=== PATIENT | female | born 1940 | race Caucasian/White ===

== ENCOUNTER 2018-01-05 12:43 | Inpatient (IN) | payer MEDICARE, BC ==
[~2018-01-05] VITALS: Ht 167.6 cm; Wt 47.9 kg
[2018-01-05 14:04] LABS: BASOPHILS # (AUTO) 0.06 x10^3/uL (0-0.1); BASOPHILS % (AUTO) 1 % (0-1); EOSINOPHILS # (AUTO) 0.06 x10^3/uL (0-0.4); EOSINOPHILS % (AUTO) 1 % (1-7); LYMPHOCYTES # (AUTO) 0.96 x10^3/uL (1-3.4); LYMPHOCYTES % (AUTO) 17 % (22-44); MD NO; MEAN CORPUSCULAR HEMOGLOBIN 29.5 pg (27.0-34.8); MEAN CORPUSCULAR VOLUME 92.3 fL (80-100); MEAN PLATELET VOLUME 7.4 fL (7.4-10.4); MONOCYTES # (AUTO) 0.39 x10^3/uL (0.2-0.8); MONOCYTES % (AUTO) 7 % (2-9); NEUTROPHILS # (AUTO) 4.16 x10^3/uL (1.8-6.8); NEUTROPHILS % (AUTO) 74 % (42-75); PLATELET COUNT 334 x10^3/uL (130-400); RED BLOOD COUNT 3.97 x10^6/uL (3.82-5.3); RED CELL DISTRIBUTION WIDTH 17.3 % (9.6-15.2)
[2018-01-05 14:11] LABS: INTERNATIONAL NORMALIZED RATIO 1.08 (0.93-1.1); PROTHROMBIN TIME 11.2 Seconds (9.6-11.5)
[2018-01-05 14:14] LABS: CHLORIDE 111 mmol/L (98-107)
[2018-01-05 14:15] LABS: ALBUMIN 3.3 g/dL (3.4-5.0); ANION GAP 5 mmol/L (5-15); CALCIUM 8.8 mg/dL (8.5-10.1)
[2018-01-05 14:19] LABS: ALANINE AMINOTRANSFERASE 20 U/L (12-78); ALKALINE PHOSPHATASE 101 U/L (45-117); BILIRUBIN,TOTAL 0.3 mg/dL (0.2-1.0); CREATININE 0.61 mg/dL (0.55-1.02); TOTAL PROTEIN 7.4 g/dL (6.4-8.2)
[2018-01-05] MEDS ORDERED: ASPIRIN 81 MG TABLET CHEW PO ONE (15:00)
[2018-01-05] MEDS ORDERED: CLOP75TA PO (15:55)
[2018-01-05] MEDS ORDERED: CITA10TA4 PO (15:55)
[2018-01-05] MEDS ORDERED: LOPE2TAB28 PO (15:55)
[2018-01-05] MEDS ORDERED: MIRT15TA4 PO (15:55)
[2018-01-05] MEDS ORDERED: METR500T8 PO (15:55)
[2018-01-05] MEDS ORDERED: POTA20TA89 PO (15:55)
[2018-01-05] MEDS ORDERED: FOLI-17 PO (15:55)
[2018-01-05] MEDS ORDERED: BUDE3CAP6 PO (15:55)
[2018-01-05] MEDS ORDERED: POTASSIUM CHLORIDE 20 MEQ TAB.ER.PRT PO ONE (16:00)
[2018-01-05] MEDS ORDERED: ASPIRIN 81 MG TABLET CHEW ONE (16:14)
[2018-01-05 16:18] LABS: THYROID STIMULATING HORMONE 2.07 mIU/L (0.358-3.740)
[2018-01-05 16:38] LABS: HEMOGLOBIN A1C 4.6 % (4.2-6.3)
[2018-01-05] MEDS ORDERED: GADOBUTROL 7.5 MMOL/7.5 ML PFS ONE (16:42)
[2018-01-05 18:45] VITALS: BP 166/74
[2018-01-05 18:58] VITALS: BP 168/66
[2018-01-05 20:08] VITALS: BP 166/74
[2018-01-05] MEDS ORDERED: POTASSIUM CHLORIDE 20 MEQ TAB.ER.PRT ONE (21:16)
[2018-01-05] MEDS: SODIUM CHLORIDE 0.9% 1,000 ML IV SCH (21:23)
[2018-01-05] MEDS: ATORVASTATIN 40 MG TABLET PO SCH (21:24)
[2018-01-06 00:20] LABS: MICROSCOPIC AUTO
[2018-01-06 00:22] LABS: CULTURE INDICATED? YES
[2018-01-06 00:35] VITALS: BP 168/67
[2018-01-06] MEDS: ACETAMINOPHEN 325 MG TABLET PO PRN ×2 (00:45→22:53)
[2018-01-06 05:21] LABS: BASOPHILS # (AUTO) 0.04 x10^3/uL (0-0.1); BASOPHILS % (AUTO) 1 % (0-1); EOSINOPHILS # (AUTO) 0.07 x10^3/uL (0-0.4); EOSINOPHILS % (AUTO) 1 % (1-7); LYMPHOCYTES # (AUTO) 0.99 x10^3/uL (1-3.4); LYMPHOCYTES % (AUTO) 16 % (22-44); MD NO; MEAN CORPUSCULAR HEMOGLOBIN 29.4 pg (27.0-34.8); MEAN CORPUSCULAR HGB CONC 32.2 g/dL (32.4-35.8); MEAN CORPUSCULAR VOLUME 91.3 fL (80-100); MEAN PLATELET VOLUME 7.1 fL (7.4-10.4); MONOCYTES # (AUTO) 0.66 x10^3/uL (0.2-0.8); MONOCYTES % (AUTO) 11 % (2-9); NEUTROPHILS # (AUTO) 4.52 x10^3/uL (1.8-6.8); NEUTROPHILS % (AUTO) 72 % (42-75); PLATELET COUNT 243 x10^3/uL (130-400); RED BLOOD COUNT 3.28 x10^6/uL (3.82-5.3); RED CELL DISTRIBUTION WIDTH 17.6 % (9.6-15.2)
[2018-01-06 05:31] LABS: CHLORIDE 115 mmol/L (98-107)
[2018-01-06 05:41] LABS: ANION GAP 4 mmol/L (5-15); CHOL/HDL RATIO 1.8; CHOLESTEROL, TOTAL 112 mg/dL (140-239); CREATININE 0.61 mg/dL (0.55-1.02); HDL CHOL % 55 % (28-40); HDL CHOLESTEROL (DIRECT) 62 mg/dL (40-60); LDL CHOLESTEROL,CALCULATED 40 mg/dL (54-169); LDL/HDL RATIO 0.6 (0.5-3.0); TRIGLYCERIDES 49 mg/dL (50-200); VLDL CHOLESTEROL 10 mg/dL (0-25)
[2018-01-06] MEDS: SODIUM CHLORIDE 0.9% 1,000 ML IV SCH ×2 (08:48→15:32)
[2018-01-06] MEDS: ASPIRIN 325 MG TABLET PO SCH (09:48)
[2018-01-06] MEDS ORDERED: GADOBUTROL 7.5 MMOL/7.5 ML PFS ONE (11:17)
[2018-01-06 12:27] VITALS: BP 132/68
[2018-01-06 14:30] VITALS: BP 149/69
[2018-01-06] MEDS: ATORVASTATIN 40 MG TABLET PO SCH (20:31)
[2018-01-06 21:23] VITALS: BP 136/63
[2018-01-07 02:00] VITALS: BP 162/75
[2018-01-07 05:30] LABS: BASOPHILS # (AUTO) 0.06 x10^3/uL (0-0.1); BASOPHILS % (AUTO) 1 % (0-1); EOSINOPHILS # (AUTO) 0.09 x10^3/uL (0-0.4); EOSINOPHILS % (AUTO) 2 % (1-7); LYMPHOCYTES # (AUTO) 1.06 x10^3/uL (1-3.4); LYMPHOCYTES % (AUTO) 24 % (22-44); MD NO; MEAN CORPUSCULAR HEMOGLOBIN 29.7 pg (27.0-34.8); MEAN CORPUSCULAR HGB CONC 32.2 g/dL (32.4-35.8); MEAN CORPUSCULAR VOLUME 92.3 fL (80-100); MEAN PLATELET VOLUME 7.6 fL (7.4-10.4); MONOCYTES # (AUTO) 0.51 x10^3/uL (0.2-0.8); MONOCYTES % (AUTO) 11 % (2-9); NEUTROPHILS # (AUTO) 2.77 x10^3/uL (1.8-6.8); NEUTROPHILS % (AUTO) 62 % (42-75); PLATELET COUNT 239 x10^3/uL (130-400); RED BLOOD COUNT 3.31 x10^6/uL (3.82-5.3); RED CELL DISTRIBUTION WIDTH 17.3 % (9.6-15.2)
[2018-01-07 05:31] LABS: CHLORIDE 117 mmol/L (98-107)
[2018-01-07 06:04] LABS: ALBUMIN 2.4 g/dL (3.4-5.0); ANION GAP 5 mmol/L (5-15); CALCIUM 8.2 mg/dL (8.5-10.1); CREATININE 0.45 mg/dL (0.55-1.02); TOTAL IRON BINDING CAPACITY 334 mcg/dL (250-450)
[2018-01-07 06:10] LABS: % IRON SATURATION 7 % (20-55); FOLATE LEVEL > 20.0 ng/mL (3.1-17.5); IRON LEVEL 24 mcg/dL (50-170)
[2018-01-07 07:40] VITALS: BP 188/79
[2018-01-07] MEDS: ASPIRIN 325 MG TABLET PO SCH (08:29)
[2018-01-07] MEDS: SODIUM CHLORIDE 0.9% 1,000 ML IV SCH ×2 (12:14→23:00)
[2018-01-07] MEDS: ACETAMINOPHEN 325 MG TABLET PO PRN (13:14)
[2018-01-07 13:53] VITALS: BP 146/88
[2018-01-07 19:14] VITALS: BP 135/67
[2018-01-07 21:00] LABS: CULTURE INDICATED? YES; MICROSCOPIC INDICATED
[2018-01-07] MEDS: FERROUS SULFATE 325 MG TABLET PO SCH (21:05)
[2018-01-07] MEDS: ATORVASTATIN 40 MG TABLET PO SCH (21:05)
[2018-01-08] MEDS: DIPHENHYDRAMINE 12.5MG/5ML, 10ML UDC PO ONE ×2 (00:30→00:37)
[2018-01-08] MEDS: ACETAMINOPHEN 325 MG TABLET PO PRN (00:55)
[2018-01-08 03:28] VITALS: BP 147/68
[2018-01-08 05:53] LABS: BASOPHILS # (AUTO) 0.05 x10^3/uL (0-0.1); BASOPHILS % (AUTO) 1 % (0-1); EOSINOPHILS # (AUTO) 0.12 x10^3/uL (0-0.4); EOSINOPHILS % (AUTO) 2 % (1-7); LYMPHOCYTES # (AUTO) 0.92 x10^3/uL (1-3.4); LYMPHOCYTES % (AUTO) 17 % (22-44); MD NO; MEAN CORPUSCULAR HEMOGLOBIN 29.6 pg (27.0-34.8); MEAN CORPUSCULAR HGB CONC 32.1 g/dL (32.4-35.8); MEAN CORPUSCULAR VOLUME 92.2 fL (80-100); MEAN PLATELET VOLUME 7.6 fL (7.4-10.4); MONOCYTES # (AUTO) 0.44 x10^3/uL (0.2-0.8); MONOCYTES % (AUTO) 8 % (2-9); NEUTROPHILS # (AUTO) 3.76 x10^3/uL (1.8-6.8); NEUTROPHILS % (AUTO) 71 % (42-75); PLATELET COUNT 229 x10^3/uL (130-400); RED BLOOD COUNT 3.35 x10^6/uL (3.82-5.3); RED CELL DISTRIBUTION WIDTH 17.2 % (9.6-15.2)
[2018-01-08 06:01] LABS: ALBUMIN 2.4 g/dL (3.4-5.0); ANION GAP 5 mmol/L (5-15); CALCIUM 8.1 mg/dL (8.5-10.1); CHLORIDE 114 mmol/L (98-107); CREATININE 0.43 mg/dL (0.55-1.02)
[2018-01-08 06:59] VITALS: BP 157/68
[2018-01-08] MEDS: ASPIRIN 325 MG TABLET PO SCH (08:59)
[2018-01-08] MEDS: FERROUS SULFATE 325 MG TABLET PO SCH ×2 (09:00→20:49)
[2018-01-08] MEDS: SODIUM CHLORIDE 0.9% 1,000 ML IV SCH ×2 (09:00→17:52)
[2018-01-08] MEDS: CYANOCOBALAMIN 1,000 MCG TABLET PO SCH (09:00)
[2018-01-08] MEDS ORDERED: TEMAZEPAM 15 MG CAPSULE PO PRN (10:00)
[2018-01-08 12:52] VITALS: BP 102/62
[2018-01-08 19:07] VITALS: BP 160/65
[2018-01-08] MEDS: ATORVASTATIN 40 MG TABLET PO SCH (20:49)
[2018-01-09 01:18] VITALS: BP 163/70
[2018-01-09] MEDS: SODIUM CHLORIDE 0.9% 1,000 ML IV SCH ×2 (06:07→15:54)
[2018-01-09 07:25] VITALS: BP 134/72
[2018-01-09] MEDS: FERROUS SULFATE 325 MG TABLET PO SCH (08:43)
[2018-01-09] MEDS: CYANOCOBALAMIN 1,000 MCG TABLET PO SCH (08:43)
[2018-01-09] MEDS: ASPIRIN 325 MG TABLET PO SCH (08:43)
[2018-01-09] MEDS ORDERED: IRON SUCROSE COMPLEX 100MG/5ML IV SCH (09:30)
[2018-01-09 12:20] VITALS: BP 145/69
[2018-01-09] MEDS ORDERED: CITA10TA4 PO (15:52)
[2018-01-09] MEDS ORDERED: ASPI325T17 PO (15:52)
[2018-01-09] MEDS ORDERED: MIRT15TA4 PO (15:52)
[2018-01-09] MEDS ORDERED: ATOR40TA78 PO (15:52)
[2018-01-09] MEDS ORDERED: CLOP75TA PO (15:52)
[2018-01-09] MEDS ORDERED: BUDE3CAP6 PO (15:52)
[2018-01-09] MEDS ORDERED: FOLI-17 PO (15:52)
[2018-01-09] MEDS ORDERED: FERR-51 PO (15:52)
[2018-01-09] MEDS ORDERED: CYAN10005 PO (15:52)
== END 2018-01-09 18:15 | disposition home or self-care (01) | DRG 91 ==
LOC: ED 14:38 → EDIP 14:42 → 4WST 17:01
PROVIDERS: ADMIT Hospitalist; ATTEND Hospitalist
PROC: 0T9B70Z Drainage of Bladder with Drainage Device, Via Natural or Artificial Opening (ICD-10-PCS; principal; 2018-01-06)
DX: G83.14 Monoplegia of lower limb affecting left nondominant side (principal); E43 Unspecified severe protein-calorie malnutrition; K50.90 Crohn's disease, unspecified, without complications; D64.9 Anemia, unspecified; N39.0 Urinary tract infection, site not specified; G95.9 Disease of spinal cord, unspecified; I69.30 Unspecified sequelae of cerebral infarction; R26.2 Difficulty in walking, not elsewhere classified; W19.XXXA Unspecified fall, initial encounter; R29.2 Abnormal reflex; E87.6 Hypokalemia; G83.30 Monoplegia, unspecified affecting unspecified side; Z80.3 Family history of malignant neoplasm of breast; Z83.3 Family history of diabetes mellitus; Z85.05 Personal history of malignant neoplasm of liver; Z93.3 Colostomy status; Y93.89 Activity, other specified; Y92.89 Other specified places as the place of occurrence of the external cause; Y99.8 Other external cause status
CPT/HCPCS: 36415; 70450; 70553; 71045; 72141; 72146; 72158; 80048; 80053; 80061; 81001; 82040; 82274; 82607; 82728; 82746; 83036; 83540; 83550; 83735; 84100; 84443; 85025; 85610; 85730; 87086; 93005; 99285; A9585; J1756; J7030